=== PATIENT | female | born 1995 | race Caucasian/White ===

== ENCOUNTER 2019-04-26 17:06 | Emergency (ER) | payer MEDICAID ==
--- NOTE | 2019-04-26 17:30 | EDM.PDOC ---
ED HPI GENERAL MEDICAL PROBLEM - General Chief Complaint: Upper Extremity Injury/Pain Stated Complaint: INJURY TO L WRIST AND THUMB Time Seen by Provider: 04/26/19 17:15 Source of Information: Reports: Patient History Limitations: Reports: No Limitations - History of Present Illness INITIAL COMMENTS - FREE TEXT/NARRATIVE: Patient states that her left hand/thumb was caught in her valdez lanyard was trying to shut the door and it twisted her thumb about 45 minutes ago she states that it is sharp stabbing type pain 4 out of 5 mostly around the thumb and palm area of the hand she denies any discoloration and coldness numbness or tingling to the area or loss of movement she does state that she is having trouble with opposition 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 she has no other complaints at this time Onset: Today, Sudden Duration: Minutes: Location: Reports: Upper Extremity, Left Quality: Reports: Stabbing Improves with: Reports: None, Cold Therapy, Other Worsens with: Reports: Movement Associated Symptoms: Reports: No Other Symptoms - Related Data Allergies Allergy/AdvReac Type Severity Reaction Status Date / Time No Known Allergies Allergy Verified 04/26/19 17:22 Home Meds: Home Meds Drospirenone/Estradiol [Angeliq 0.5 mg-0.25 mg Tablet] 1 each PO ASDIRECTED [History] Past Medical History - Past Health History Medical/Surgical History: Denies Medical/Surgical History Neurological History: Reports: Migraines Review of Systems - Review of Systems Review Of Systems: ROS reveals no pertinent complaints other than HPI. Musculoskeletal: Reports: Muscle Pain Skin: Reports: No Symptoms Neurological: Reports: No Symptoms ED EXAM, GENERAL - Physical Exam Exam: See Below Exam Limited By: No Limitations General Appearance: Alert, WD/WN, No Apparent Distress Extremities: Normal Inspection, Normal Range of Motion, Normal Capillary Refill , Other (Exam of the left hand patient has strong radius ulna Refill she is neurovascularly intact with normal abduction and abduction and opposition she has full range of motion over all normal pronation supination flexion and extension of the wrist she has normal lites and extension of the thumb full range of motion with adductor pollicis longus extensor pollicis brevis she has no tenderness to palpation with axial load there is no edema or ecchymosis noted to the thumb or hand she has no snuffbox tenderness in the wrist patient is no acute distress actively taking on the phone on arrival in the room) Neurological: Alert, CN II-XII Intact, Normal Cognition, Normal Gait Skin Exam: Warm, Dry, Intact, Normal Color, No Rash Course - Vital Signs Text/Narrative:: Thumb spica splint was applied to the left hand and wrist patient was neurovascularly intact after application Departure - Departure Time of Disposition: 17:35 Disposition: Home, Self-Care 01 Condition: Good Clinical Impression: Strain of thumb, left - Discharge Information Referrals: Sherman Santana NP [Primary Care Provider] - - Problem List & Annotations (1) Strain of thumb, left SNOMED Code(s): 679552356 Code(s): [id number] - Status: Acute Current Visit: Yes
== END 2019-04-26 17:40 | disposition home or self-care (01) ==
LOC: VM.ED 17:06
DX: S66.212A Strain of extensor muscle, fascia and tendon of left thumb at wrist and hand level, initial encounter (principal); W23.0XXA Caught, crushed, jammed, or pinched between moving objects, initial encounter
CPT/HCPCS: 99283

== ENCOUNTER 2019-07-22 21:23 | Emergency (ER) | payer MEDICAID ==
[2019-07-22] MEDS ORDERED: Take Home: Albuterol 6.7 GM Inhaler, 1 Inhaler Pack INH ONE (22:07)
[2019-07-22] MEDS ORDERED: Take Home: Codeine/Promethazine 10-6.25 MG/5 ML Syrup 5 ML, 2 Cup Pack PO ONE (22:07)
--- NOTE | 2019-07-23 08:06 | CR ---
[id number] RAD/RAD Chest PA And Lateral EXAM: RAD Chest PA And Lateral CLINICAL DATA: COUGH CONGESTION COMPARISON: NO PREVIOUS SIMILAR EXAM IS AVAILABLE. FINDINGS: The lungs are clear. The cardiomediastinal contour is normal. The regional bones and soft tissues are unremarkable. IMPRESSION: NO ACUTE PROCESS. Merritt Brown MD 07/23/19 0805 Thank you for allowing us to participate in the care of your patient.
--- NOTE | 2019-08-03 06:56 | EDM.PDOC ---
ED HPI GENERAL MEDICAL PROBLEM - General Chief Complaint: General Stated Complaint: COUGH AND MUSCLE ACHES Time Seen by Provider: 07/22/19 21:28 Source of Information: Reports: Patient History Limitations: Reports: No Limitations - History of Present Illness INITIAL COMMENTS - FREE TEXT/NARRATIVE: Pt. presents to ER with complaints of cough, chest congestion, and fatigue. She states that she was seen in the clinic for this 3 days ago and started on azithromycin and prednisone for brochitis. Denies any chest pain or shortness of breath. No nausea, vomiting, or diarrhea. Pt. complains of increased cough. She states that she has taken her medications for approx. 3 days and is concerned she doesn't feel better. Onset Date: 07/22/19 Location: Reports: Chest - Related Data Allergies Allergy/AdvReac Type Severity Reaction Status Date / Time No Known Allergies Allergy Verified 07/22/19 21:37 Home Meds: Home Meds Drospirenone/Estradiol [Angeliq 0.5 mg-0.25 mg Tablet] 1 each PO ASDIRECTED [History] Azithromycin [Zithromax] 250 mg PO DAILY 07/22/19 [History] predniSONE [Prednisone] 20 mg PO BID 07/22/19 [History] Past Medical History - Past Health History Medical/Surgical History: Denies Medical/Surgical History Neurological History: Reports: Migraines Social & Family History - Tobacco Use Smoking Status *Q: Never Smoker ED ROS GENERAL - Review of Systems Review Of Systems: See Below Constitutional: Reports: Malaise, Fatigue HEENT: Reports: No Symptoms Respiratory: Reports: Cough, Sputum Cardiovascular: Reports: No Symptoms Endocrine: Reports: No Symptoms GI/Abdominal: Reports: No Symptoms : Reports: No Symptoms Musculoskeletal: Reports: No Symptoms Skin: Reports: No Symptoms Neurological: Reports: No Symptoms Psychiatric: Reports: No Symptoms Hematologic/Lymphatic: Reports: No Symptoms Immunologic: Reports: No Symptoms ED EXAM, GENERAL - Physical Exam Exam: See Below Exam Limited By: No Limitations General Appearance: Alert, WD/WN, No Apparent Distress Eye Exam: Bilateral Eye: EOMI, Normal Fundi, Normal Inspection, PERRL Ears: Normal External Exam, Normal Canal, Hearing Grossly Normal, Normal TMs Ear Exam: Bilateral Ear: TM normal Nose: Normal Inspection, Normal Mucosa, No Blood Throat/Mouth: Normal Inspection, Normal Lips, Normal Teeth, Normal Gums, Normal Oropharynx, Normal Voice, No Airway Compromise Head: Atraumatic, Normocephalic Neck: Normal Inspection, Supple, Non-Tender, Full Range of Motion Respiratory/Chest: No Respiratory Distress, Decreased Breath Sounds, Rhonchi Cardiovascular: Normal Peripheral Pulses, Regular Rate, Rhythm, No Edema, No Gallop, No JVD, No Murmur, No Rub Peripheral Pulses: 4+: Radial (L) GI/Abdominal: Normal Bowel Sounds, Soft, Non-Tender, No Organomegaly, No Distention, No Abnormal Bruit, No Mass Extremities: Normal Inspection, Normal Range of Motion, Non-Tender, No Pedal Edema, Normal Capillary Refill Neurological: Alert, Oriented, CN II-XII Intact, Normal Cognition, Normal Gait, Normal Reflexes, No Motor/Sensory Deficits Skin Exam: Warm, Dry, Intact, Normal Color, No Rash Course - Vital Signs Last Recorded V/S: Last Vital Signs Temp 36.8 C 07/22/19 21:28 Pulse 86 07/22/19 21:28 Resp 16 07/22/19 21:28 BP 129/75 07/22/19 21:28 Pulse Ox 100 07/22/19 21:28 - Orders/Labs/Meds Meds: Medications Discontinued Medications Generic Name Dose Route Start Last Admin Trade Name Jen PRN Reason Stop Dose Admin Albuterol 1 packet 07/22/19 22:07 07/22/19 22:20 Take Home: Albuterol 6.7 Gm, 1 Inh Pack INH 07/22/19 22:08 1 packet ONETIME ONE Administration Promethazine HCl/Codeine 1 packet 07/22/19 22:07 07/22/19 22:20 Take Home: Codeine/Prometh 10-6.25 Mg, 2 Pack PO 07/22/19 22:08 1 packet ONETIME ONE Administration - Radiology Interpretation Free Text/Narrative:: negative for acute pathology Departure - Departure Time of Disposition: 22:30 Disposition: Home, Self-Care 01 Clinical Impression: Bronchitis - Discharge Information Instructions: Albuterol inhalation aerosol, Acute Bronchitis, Adult, Easy-to- Read, Codeine; Promethazine oral solution Referrals: Sherman Santana PROFILER OPERATOR [Primary Care Provider] - Forms: ED Department Discharge Additional Instructions: Continue with your prednisone and azithromycin as prescribed. Albuterol inhaler 2 puffs every 4-6 hours as needed for cough/congestion/wheezing Phenergan with codeine 5-10 ml. (1-2 tsp) every 4-6 hours as needed for cough. Do not take this medication if you are driving/using machinery. Recheck in clinic in 10-14 days. Drink plenty of fluids. Off class tomorrow, or until it has been more than 24 hours since you have had a fever. - Assessment/Plan Plan: Continue with your prednisone and azithromycin as prescribed. Albuterol inhaler 2 puffs every 4-6 hours as needed for cough/congestion/wheezing Phenergan with codeine 5-10 ml. (1-2 tsp) every 4-6 hours as needed for cough. Do not take this medication if you are driving/using machinery. Recheck in clinic in 10-14 days. Drink plenty of fluids. Off class tomorrow, or until it has been more than 24 hours since you have had a fever.
== END 2019-07-22 22:27 | disposition home or self-care (01) ==
LOC: VM.ED 21:23
DX: J40 Bronchitis, not specified as acute or chronic (principal); Z79.899 Other long term (current) drug therapy
CPT/HCPCS: 71046; 99283; A9270

== ENCOUNTER 2020-12-18 09:46 | Emergency (ER) | payer MEDICAID ==
[2020-12-18] MEDS ORDERED: Lidocaine 1% 30 ML SDV INJECT ONE (10:03)
--- NOTE | 2020-12-18 23:18 | EDM.PDOC ---
ED HPI GENERAL MEDICAL PROBLEM - General Chief Complaint: Laceration Stated Complaint: CUT A FINGER Time Seen by Provider: 12/18/20 10:00 Source of Information: Reports: Patient, RN, RN Notes Reviewed History Limitations: Reports: No Limitations - History of Present Illness INITIAL COMMENTS - FREE TEXT/NARRATIVE: Pt. sustained a laceration to the lateral aspect of her L index finger this AM while cutting an avocado. She states that she thinks her tetanus is UTD, but is not sure-she will check with [facility] tomorrow. Pt. denies any numbness or tingling in the distal portion of the extremity. Denies any injury elsewhere. Onset: Today Onset Date: 12/18/20 Location: Reports: Upper Extremity, Left Quality: Reports: Sharp Severity: Mild Finger-Middle Pain Score (Numeric/FACES): 3 - Related Data Allergies Allergy/AdvReac Type Severity Reaction Status Date / Time No Known Allergies Allergy Verified 07/22/19 21:37 Home Meds: Home Meds Drospirenone/Estradiol [Angeliq 0.5 mg-0.25 mg Tablet] 1 each PO ASDIRECTED 04/26/19 [History] Azithromycin [Zithromax] 250 mg PO DAILY 07/22/19 [History] predniSONE [Prednisone] 20 mg PO BID 07/22/19 [History] Past Medical History - Past Health History Medical/Surgical History: Denies Medical/Surgical History Neurological History: Reports: Migraines Social & Family History - Tobacco Use Tobacco Use Status *Q: Never Tobacco User ED ROS GENERAL - Review of Systems Review Of Systems: Comprehensive ROS is negative, except as noted in HPI. ED EXAM, SKIN/RASH Exam: See Below Exam Limited By: No Limitations General Appearance: Alert, WD/WN, No Apparent Distress Extremities: Other (approx. 2 cm laceration to lateral aspect of L index finger. No injury to underlying structures. CMS intact. ROM is all within normal limits.) ED SKIN PROCEDURES - Laceration/Wound Repair Left Lateral Digit - 2nd (Index) Appearance: Subcutaneous Distal NVT: Neuro & Vascular Intact, No Tendon Injury Anesthetic Type: Local Local Anesthesia - Lidocaine (Xylocaine): 1% Plain Local Anesthetic Volume: 2cc Skin Prep: Chlorhexidine (Hibiciens), Saline Saline Irrigation (cc's): 500 Exploration/Debridement/Repair: Wound Explored, Explored to Base, No Foreign Material Found Closed with: Sutures Lac/Wound length In cm: 2 Suture Size: 4-0 # of Sutures: 2 Suture Type: Nylon Course - Vital Signs Last Recorded V/S: Last Vital Signs Temp 36.9 C 12/18/20 09:50 Pulse 68 12/18/20 09:50 Resp 16 12/18/20 09:50 BP 131/57 L 12/18/20 09:50 Pulse Ox 99 12/18/20 09:50 - Orders/Labs/Meds Meds: Medications Discontinued Medications Generic Name Dose Route Start Last Admin Trade Name Jen PRN Reason Stop Dose Admin Lidocaine HCl 30 ml 12/18/20 10:03 12/18/20 10:05 Xylocaine-Mpf 1% INJECT 12/18/20 10:04 30 ml ONETIME ONE Administration Departure - Departure Time of Disposition: 10:30 Disposition: Home, Self-Care 01 Clinical Impression: Laceration - Discharge Information Instructions: Laceration Care, Adult Referrals: Sherman Santana NP [Primary Care Provider] - Forms: ED Department Discharge Additional Instructions: Sutures out in 10 days. They can be removed in the clinic by nursing. Keep dry for 24 hours. Keep bandage on for 24 hours/until no longer oozing blood. Keep open to air as much as possible. Sepsis Event Note (ED) - Evaluation Sepsis Screening Result: No Definite Risk - Problem List Review Problem List Initiated/Reviewed/Updated: Yes - Assessment/Plan Plan: Sutures out in 10 days. They can be removed in the clinic by nursing. Keep dry for 24 hours. Keep bandage on for 24 hours/until no longer oozing blood. Keep open to air as much as possible.
== END 2020-12-18 10:25 | disposition home or self-care (01) ==
LOC: VM.ED 09:46
DX: S61.211A Laceration without foreign body of left index finger without damage to nail, initial encounter (principal); W26.8XXA Contact with other sharp object(s), not elsewhere classified, initial encounter
CPT/HCPCS: 12001; 99282-25; 99283